=== PATIENT | female | born 1980 | race Caucasian/White ===

== ENCOUNTER 2018-03-02 17:24 | Emergency (ER) | payer OTHER, BC ==
[2018-03-02 17:39] VITALS: BP 139/82; PULSE 96; TEMP 98.6; BMI 24.1
--- NOTE | 2018-03-02 20:13 | PDOC ---
History of Present Illness <Casey Alberto - Last Filed: 03/02/18 22:53> - General History Source: Patient Exam Limitations: No Limitations - History of Present Illness Initial Comments: 03/02/18 22:35 Ms. Edmonds is a 37 yo with a hx of a herniated disc C4 right side who presents to the emergency department with chest pain. She states 3 days ago she had sharp chest pain that was 6/10 in the center of the chest without radiation and occurred twice lasting "seconds". She had an episode today at 3pm 1x occurrence with the same qualities as before. She endorses having a hx of palpitations and was recently treated with metoprolol but admits to intermittent use. She endorses having increases anxiety and has associated headaches of tension like quality with dizziness. Denies the following: fever, SOB, nausea, vomiting, diarrhea, dysuria, hematuria. Has not seen PCP in 6 years. Pmhx: herniated disc Shx: none meds: clonipin and metoprolol allergies: NKDA social hx: smokes 6 cigarettes/day, denies alcohol and drug abuse. 03/02/18 22:45 <Lee Gamez - Last Filed: 03/03/18 10:46> - General Chief Complaint: Lightheaded Stated Complaint: PALPITATIONS Time Seen by Provider: 03/02/18 20:13 Past History <Casey Alberto - Last Filed: 03/02/18 22:53> - Past Medical History Cardiac Disorders: Yes (palpitations, leaky valve) COPD: No Psychiatric Problems: Yes (anxiety disorder) Other medical history: herniated disc c-4, right side neck - Immunization History Immunization Up to Date: Yes - Suicide/Smoking/Psychosocial Hx Smoking Status: Yes Smoking History: Current some day smoker Number of Cigarettes Smoked Daily: 20 Information on smoking cessation initiated: No <Lee Gamez - Last Filed: 03/03/18 10:46> - Past Medical History Allergies/Adverse Reactions: Allergies Allergy/AdvReac Type Severity Reaction Status Date / Time No Known Allergies Allergy Verified 03/02/18 17:33 Home Medications: Ambulatory Orders Diazepam [Valium] 5 mg PO DAILY PRN 01/29/13 Sertraline HCl [Zoloft] 50 mg PO DAILY 01/29/13 Meclizine HCl [Antivert -] 25 mg PO TID #30 tablet 01/30/13 Review of Systems - Review of Systems Constitutional: No: Chills, Diaphoresis, Fever HEENTM: No: Recent change in vision, Nose Pain, Throat Pain, Mouth Pain Respiratory: No: Cough, Shortness of Breath Cardiac (ROS): Yes: Chest Pain ABD/GI: No: Constipated, Diarrhea, Nausea, Vomiting : No: Burning, Dysuria, Hematuria Musculoskeletal: No: Back Pain Integumentary: No: Rash Neurological: Yes: Headache. No: Numbness, Paresthesia Psychiatric: Yes: Stressors Endocrine: No: Unexplained Weight Gain Hematologic/Lymphatic: No: Anemia <FrancoLee - Last Filed: 03/03/18 10:46> *Physical Exam - Vital Signs Last Vital Signs Temp Pulse Resp BP Pulse Ox 98.6 F 96 H 18 139/82 97 03/02/18 17:33 03/02/18 17:33 03/02/18 17:33 03/02/18 17:33 03/02/18 17:33 <Casey Alberto - Last Filed: 03/02/18 22:53> - Vital Signs Last Vital Signs Temp Pulse Resp BP Pulse Ox 98.6 F 96 H 18 139/82 97 03/02/18 17:33 03/02/18 17:33 03/02/18 17:33 03/02/18 17:33 03/02/18 17:33 - Physical Exam General Appearance: Yes: Nourished, Appropriately Dressed HEENT: positive: EOMI, DORIAN Neck: negative: Lymphadenopathy (R), Lymphadenopathy (L) Respiratory/Chest: positive: Lungs Clear, Normal Breath Sounds Cardiovascular: positive: Regular Rhythm, Regular Rate, S1, S2. negative: Systolic Murmur Vascular Pulses: Dorsalis-Pedis (R): 3+, Doralis-Pedis (L): 3+ Gastrointestinal/Abdominal: positive: Normal Bowel Sounds. negative: Tender Lymphatic: negative: Adenopathy Musculoskeletal: negative: CVA Tenderness Extremity: positive: Normal Capillary Refill, Normal Inspection Integumentary: positive: Normal Color, Dry, Warm Neurologic: positive: molecular spectroscopist II-XII NML intact, Fully Oriented, Alert, Normal Mood/ Affect, Normal Response, Motor Strength 5/5 <FrancoLee - Last Filed: 03/03/18 10:46> Heart Score/ECG Review - History History: Slightly suspicious - Electrocardiogram EKG: Normal - Age Age: </= 45 - Risk Factors Risk Factors Heart Score: Yes Smoking History Based on the list above the patient has:: 1-2 risk factors - Troponin Troponin: </= normal limit - Score Heart Score - Total: 1 - ECG Intrepretation Rhythm: Regular Rhythm - [place]: Normal - ECG Impressions Normal ECG: Yes <Lee Gamez - Last Filed: 03/03/18 10:46> ED Treatment Course - LABORATORY CBC & Chemistry Diagram: 03/02/18 21:35 03/02/18 21:35 - ADDITIONAL ORDERS Additional order review: Laboratory Results 03/02/18 21:35 Sodium 143 Potassium 3.7 Chloride 104 Carbon Dioxide 30 Anion Gap 9 BUN 7 Creatinine 0.7 Creat Clearance w eGFR > 60 Random Glucose 74 Calcium 9.2 Total Bilirubin 0.3 AST 11 L ALT 18 Alkaline Phosphatase 48 Creatine Kinase 139 Troponin I < 0.02 Total Protein 7.9 Albumin 4.7 03/02/18 21:35 RBC 4.87 MCV 85.4 MCHC 34.1 RDW 13.4 MPV 9.0 Neutrophils % 53.5 Lymphocytes % 36.7 Monocytes % 7.3 Eosinophils % 1.9 Basophils % 0.6 - Medications Given in the ED: ED Medications Discontinued Medications Generic Name Dose Route Start Last Admin Trade Name Urbanq PRN Reason Stop Dose Admin Acetaminophen 1,000 mg 03/02/18 22:25 03/02/18 22:37 Tylenol - PO 03/02/18 22:26 1,000 mg ONCE ONE Administration <Casey Alberto - Last Filed: 03/02/18 22:53> - LABORATORY CBC & Chemistry Diagram: 03/02/18 21:35 03/02/18 21:35 <Lee Gamez - Last Filed: 03/03/18 10:46> Medical Decision Making - Medical Decision Making 03/02/18 22:43 Ms. Edmonds is a 37 yo F with a hx of herniated disc and anxiety presenting with chest pain. Based on hx and PE likely chest pain secondary to anxiety vs cardiac etiology Initial vitals: Initial Vital Signs Temp Pulse Resp BP Pulse Ox 98.6 F 96 H 18 139/82 97 03/02/18 17:33 03/02/18 17:33 03/02/18 17:33 03/02/18 17:33 03/02/18 17:33 Work up:" Laboratory Results - last 24 hr 03/02/18 03/02/18 21:35 21:35 WBC 7.5 RBC 4.87 Hgb 14.2 Hct 41.6 MCV 85.4 MCH 29.2 MCHC 34.1 RDW 13.4 Plt Count 230 MPV 9.0 Absolute Neuts (auto) 4.0 Neutrophils % 53.5 Lymphocytes % 36.7 Monocytes % 7.3 Eosinophils % 1.9 Basophils % 0.6 Nucleated RBC % 0 Sodium 143 Potassium 3.7 Chloride 104 Carbon Dioxide 30 Anion Gap 9 BUN 7 Creatinine 0.7 Creat Clearance w eGFR > 60 Random Glucose 74 Calcium 9.2 Total Bilirubin 0.3 AST 11 L ALT 18 Alkaline Phosphatase 48 Creatine Kinase 139 Troponin I < 0.02 Total Protein 7.9 Albumin 4.7 Trops and EKG were within normal limits. Will have her follow up with her pcp. Disposition: DC to home 03/03/18 10:46 <Lee Gamez - Last Filed: 03/03/18 10:46> *DC/Admit/Observation/Transfer - Discharge Dispostion Decision to Admit order: No <Casey Alberto - Last Filed: 03/02/18 22:53> - Discharge Dispostion Decision to Admit order: No <Lee Gamez - Last Filed: 03/03/18 10:46> Diagnosis at time of Disposition: Chest pain Qualifiers: Chest pain type: unspecified Qualified Code(s): R07.9 - Chest pain, unspecified - Discharge Dispostion Disposition: HOME Condition at time of disposition: Stable - Referrals Referrals: [facility] [place] [facility] [place] [Provider Group] Matthew Solomon MD [Staff Physician] - - Patient Instructions Additional Instructions: You have been seen in the emergency department for chest pain. You have been determined to not have an endogenous source of chest pain originating from the heart. Your troponins were negative and EKG showed no concerning signs. Please follow up with the primary care group provided in the packet within 1-2 days to establish care. Your care is not complete until this is done. Please return to the emergency department if you have worsening symptoms, persistence of symptoms , or new concerning symptoms.
--- NOTE | 2018-03-02 21:02 | PDOC ---
Attending Attestation - HPI HPI: 03/02/18 21:31 The patient is a 37 year old female, with a significant past medical history of anxiety, who presents to the emergency department with, lightheadedness. As per patient, she was walking when she began to feel lightheaded and dizzy with associated palpitation and neck pain. She denies recent fevers, chills or headache. She denies recent nausea, vomit, diarrhea or constipation. She denies recent dysuria, frequency, urgency or hematuria. Allergies: NKA Past surgical history: None reported. Social history: Smoker (20 per day). Denies EtOH use and recreational drug use. <Jillian Puente - Last Filed: 03/02/18 21:31> - Resident Resident Name: Lee Gamez - ED Attending Attestation I have performed the following: I have examined & evaluated the patient, The case was reviewed & discussed with the resident, I agree w/resident's findings & plan, Exceptions are as noted - HPI HPI: 03/02/18 21:01 Palpitations and anxiety. - Physicial Exam PE: 03/02/18 22:46 Physical Exam General Appearance: Yes: Appropriately Dressed. No: Apparent Distress, Intoxicated HEENT: positive: EOMI, DORIAN, Normal ENT Inspection, Normal Voice, TMs Normal, Pharynx Normal. negative: Pale Conjunctivae, Photophobia, Scleral Icterus (R), Scleral Icterus (L) Neck: positive: Trachea midline, Normal Thyroid, Supple. negative: Tender, Rigid, Carotid bruit, Stridor, Lymphadenopathy (R), Lymphadenopathy (L), Thyromegaly Respiratory/Chest: positive: Lungs Clear, Normal Breath Sounds. negative: Chest Tender, Respiratory Distress, Accessory Muscle Use, Labored Respiration, RES, Crackles, Rales, Rhonchi, Stridor, Wheezing, Dullness Cardiovascular: positive: Regular Rhythm, Regular Rate, S1, S2. negative: Edema , JVD, Murmur, Bradycardia, Tachycardia Vascular Pulses: Dorsalis-Pedis (R): 2+, Doralis-Pedis (L): 2+ Gastrointestinal/Abdominal: positive: Normal Bowel Sounds, Flat, Soft. negative : Tender, Organomegaly, Pulsatile Mass, Increased Bowel Sounds, Decreased BS, Distended, Guarding, Rebound, Hernia, Hepatomegaly, Spleenomegaly Lymphatic: negative: Adenopathy, Tenderness Musculoskeletal: positive: Normal Inspection. negative: CVA Tenderness, Decreased Range of Motion Extremity: positive: Normal Capillary Refill, Normal Inspection, Normal Range of Motion, Pelvis Stable. negative: Tender, Pedal Edema, Swelling, Erythema Integumentary: positive: Normal Color, Dry, Warm. negative: Cyanotic, Erythema , Jaundice, Rash Neurologic: positive: sewer tapper II-XII NML intact, Fully Oriented, Alert, Normal Mood/ Affect, Motor Strength 5/5. negative: EOM Palsy, Facial Droop, Sensory Deficit - Medical Decision Making 03/02/18 22:47 Pt was treated and released <Casey Alberto - Last Filed: 03/02/18 22:47> Attestations - Attestations 03/02/18 21:33 Documentation prepared by Jillian Puente, acting as medical transport specialist for Casey Alberto DO. <Jillian Puente - Last Filed: 03/02/18 21:31>
[2018-03-02 21:52] LABS: BASO % 0.6 % (0-2.0); EOS % 1.9 % (0-4.5); HEMATOCRIT 41.6 % (32.4-45.2); HEMOGLOBIN 14.2 GM/dL (10.7-15.3); LYMPH % 36.7 % (8-40); MCH 29.2 pg (25.7-33.7); MCHC 34.1 g/dl (32.0-36.0); MEAN CELL VOLUME 85.4 fl (80-96); MONO % 7.3 % (3.8-10.2); NEUT % 53.5 % (42.8-82.8); PLATELET COUNT 230 K/MM3 (134-434); RBC 4.87 M/mm3 (3.60-5.2); RDW 13.4 % (11.6-15.6); WHITE BLOOD COUNT 7.5 K/mm3 (4.0-10.0)
[2018-03-02 22:18] LABS: ALBUMIN 4.7 g/dl (3.4-5.0); ALK PHOS 48 U/L (45-117); ANION GAP 9 (8-16); BILIRUBIN,TOTAL 0.3 mg/dL (0.2-1.0); BLOOD UREA NITROGEN 7 mg/dL (7-18); CALCIUM 9.2 mg/dL (8.5-10.1); CHLORIDE 104 mmol/L (98-107); CO2 30 mmol/L (21-32); CREATININE 0.7 mg/dL (0.55-1.02); GLUCOSE,RANDOM 74 mg/dL (74-106); POTASSIUM 3.7 mmol/L (3.5-5.1); SGOT/AST 11 U/L (15-37); SGPT/ALT 18 U/L (12-78); SODIUM 143 mmol/L (136-145); TOT PROT 7.9 g/dl (6.4-8.2)
[2018-03-02] MEDS ORDERED: ACETAMINOPHEN 500 MG TABLET (FP) PO ONE (22:25)
[2018-03-02] MEDS ORDERED: ACETAMINOPHEN 325 MG TABLET (FP) ONE (22:35)
--- NOTE | 2018-03-03 16:48 | EKG ---
Test Reason : Blood Pressure : / mmHG Vent. Rate : 095 BPM Atrial Rate : 095 BPM P-R Int : 126 ms QRS Dur : 080 ms QT Int : 334 ms P-R-T Axes : 061 048 000 degrees QTc Int : 419 ms NORMAL SINUS RHYTHM POSSIBLE LEFT ATRIAL ENLARGEMENT NONSPECIFIC ST AND T WAVE ABNORMALITY ABNORMAL ECG WHEN COMPARED WITH ECG OF 29-JAN-2013 21:35, T WAVE INVERSION NO LONGER EVIDENT IN INFERIOR LEADS NONSPECIFIC T WAVE ABNORMALITY HAS REPLACED INVERTED T WAVES IN LATERAL LEADS Confirmed by ROMAINE NOONAN MD ([id number]) on 03/03/2018 3:47:28 PM Referred By: Confirmed By:ROMAINE NOONAN MD
== END 2018-03-03 | disposition home or self-care (01) ==
LOC: JER 17:24
DX: R07.9 Chest pain, unspecified (principal); F17.210 Nicotine dependence, cigarettes, uncomplicated; F41.9 Anxiety disorder, unspecified
CPT/HCPCS: 36415; 80053; 82550; 84484; 84703; 85025; 93005; 93010; 99283-25